=== PATIENT | female | born 1945 | race Caucasian/White ===

== ENCOUNTER 2016-07-24 16:51 | Emergency (ER) | payer BC, MEDICARE ==
[~2016-07-24] VITALS: Ht 154.9 cm; Wt 63.5 kg
[2016-07-24] MEDS ORDERED: FURO40TA2 (17:03)
[2016-07-24] MEDS ORDERED: NITR4TASL SL (17:03)
[2016-07-24] MEDS ORDERED: DIAZ5TAB (17:03)
[2016-07-24] MEDS ORDERED: CLOP75TA2 PO (17:03)
[2016-07-24] MEDS ORDERED: ATOR40TA (17:03)
[2016-07-24] MEDS ORDERED: LISI-542 (17:03)
[2016-07-24] MEDS ORDERED: ASPI81CH PO (17:03)
[2016-07-24] MEDS ORDERED: OMEP20CA3 (17:03)
[2016-07-24] MEDS ORDERED: ATEN100T (17:03)
[2016-07-24] MEDS ORDERED: IBUPROFEN 600 MG TAB As Ordered ONE (17:33)
[2016-07-24] MEDS ORDERED: IBUPROFEN 600 MG TAB PO ONE (17:45)
[2016-07-24 19:29] VITALS: O2SAT 98
[2016-07-24 19:35] VITALS: BP 149/93
[2016-07-24] MEDS ORDERED: IBUP600T26 PO (19:41)
--- NOTE | 2016-07-25 01:17 | REP ---
Clinical: Shortness of breath on exertion. Technique: PA and lateral. Comparison: None. Findings: [id number] identified with tip in the SVC. Cardiac silhouette is within normal limits. Lung lindsey demonstrate coarsened and likely chronic interstitial changes including subtle linear fibroatelectatic change in the left lower lung zone. No focal consolidation, effusion, or pneumothorax. Skeletal structures demonstrate age-related degenerative changes. Impression: Chronic-appearing changes. No obvious acute cardiopulmonary process. Signed by Marek Gaona MD 07/25/2016 01:09 A
--- NOTE | 2016-07-25 01:21 | REP ---
Clinical: Pain. Technique: Internal rotation, external rotation, and Y view. Findings: Cortical irregularity and subtle spurring identified along the greater tuberosity and superior aspect of the humeral head and to a lesser extent along the inferior margin of the humeral head. Subtle cortical irregularity also identified at the acromioclavicular joint as well as decrease subacromial space on external rotation. There is no evidence for acute fracture or dislocation. Impression: Moderate age-related arthritic degenerative changes. Signed by Marek Gaona MD 07/25/2016 01:12 A
== END 2016-07-24 19:49 | disposition home or self-care (01) ==
LOC: M ED 17:57
DX: S43.91XA Sprain of unspecified parts of right shoulder girdle, initial encounter (principal); X50.9XXA Other and unspecified overexertion or strenuous movements or postures, initial encounter; Y92.89 Other specified places as the place of occurrence of the external cause; Y93.89 Activity, other specified; Y99.8 Other external cause status; I25.10 Atherosclerotic heart disease of native coronary artery without angina pectoris; I10 Essential (primary) hypertension; Z86.73 Personal history of transient ischemic attack (TIA), and cerebral infarction without residual deficits; Z85.79 Personal history of other malignant neoplasms of lymphoid, hematopoietic and related tissues; Z79.899 Other long term (current) drug therapy; Z79.82 Long term (current) use of aspirin; F41.9 Anxiety disorder, unspecified